=== PATIENT | female | born 1935 | race Caucasian/White ===

== ENCOUNTER → 2018-02-19 | Outpatient (CLI) | payer MEDICARE | END | disposition home or self-care (01) | LOC: SHCH 09:30 | PROVIDERS: ATTEND Internal Medicine Cardiovascular Disease | DX: I73.9 Peripheral vascular disease, unspecified (principal); I71.4 Abdominal aortic aneurysm, without rupture | CPT/HCPCS: 93925; 93978 ==

== ENCOUNTER → 2018-03-25 | Outpatient (CLI) | payer MEDICARE ==
[~2018-03-25] MED LIST: IOHEXOL-350 75 ML VIAL IV ONE
== END | disposition home or self-care (01) ==
LOC: RAH 07:28
PROVIDERS: ATTEND Internal Medicine Cardiovascular Disease
DX: I71.2 Thoracic aortic aneurysm, without rupture (principal); I70.0 Atherosclerosis of aorta; M51.36 Other intervertebral disc degeneration, lumbar region; K44.9 Diaphragmatic hernia without obstruction or gangrene; K57.30 Diverticulosis of large intestine without perforation or abscess without bleeding; I51.7 Cardiomegaly; Z90.49 Acquired absence of other specified parts of digestive tract; Z78.0 Asymptomatic menopausal state
CPT/HCPCS: 75635; Q9967

== ENCOUNTER → 2019-02-25 | Outpatient (CLI) | payer MEDICARE ==
[~2019-02-25] MED LIST changes: +IOHEXOL 350 MG/ML 100ML INFUS..BTL IV ONE; -IOHEXOL-350 75 ML VIAL IV ONE
== END | disposition home or self-care (01) ==
LOC: SHCH 07:47
PROVIDERS: ATTEND Internal Medicine Cardiovascular Disease
DX: I70.1 Atherosclerosis of renal artery (principal); I70.0 Atherosclerosis of aorta; K44.9 Diaphragmatic hernia without obstruction or gangrene; I51.7 Cardiomegaly; I71.2 Thoracic aortic aneurysm, without rupture; I73.9 Peripheral vascular disease, unspecified; M51.34 Other intervertebral disc degeneration, thoracic region; J92.9 Pleural plaque without asbestos; M47.814 Spondylosis without myelopathy or radiculopathy, thoracic region
CPT/HCPCS: 71275; 93925; Q9967

== ENCOUNTER 2020-01-12 09:45 | Inpatient (IN) | payer MEDICARE ==
[2020-01-12 10:32] LABS: BASOPHILS % (AUTO) 0.8 % (0.0-5.0); EOSINOPHILS % (AUTO) 0.6 % (0.0-8.0); HEMATOCRIT 37.5 % (36-48); LYMPHOCYTES % (AUTO) 13.3 % (21.0-51.0); MEAN CORPUSCULAR HGB CONC 33.9 g/dL (32.0-36.0); MEAN CORPUSCULAR VOLUME 97.4 fL (79-99); NEUTROPHILS % (AUTO) 74.1 % (40.0-77.0); NUCLEATED RED BLOOD CELLS 0.4 % (0.0-0.19); PLATELET COUNT (AUTO) 203 K/uL (130-400); RED BLOOD CELL COUNT(AUTO) 3.85 MIL/uL (4.00-5.50); RED CELL DISTRIBUTION WIDTH 12.9 % (11.0-15.5); WHITE BLOOD COUNT (AUTO) 5.3 K/uL (4.8-10.8)
[2020-01-12 10:47] LABS: CREATININE 0.9 mg/dL (0.5-1.5); INR 0.99 (0.85-1.15); PARTIAL THROMBOPLASTIN TIME 25.4 SEC (26.3-35.5); POTASSIUM 3.6 mmol/L (3.5-5.1); PROTHROMBIN TIME 10.7 SEC (9.6-11.6)
[2020-01-12 10:49] LABS: APPEARANCE,URINE Cloudy (CLEAR); BILIRUBIN,URINE Negative (NEGATIVE); COLOR,URINE Dark Yellow (YELLOW); GLUCOSE, URINE (UA) Negative (NEGATIVE); KETONES,URINE 15 mg/dL (NEGATIVE); LEUKOCYTE ESTERASE ,URINE Moderate (NEGATIVE); NITRATE,URINE Positive (NEGATIVE); OCCULT BLOOD,URINE Negative (NEGATIVE); PH,URINE 6.5 (5.0-8.0); PROTEIN,URINE Trace mg/dL (NEGATIVE)
[2020-01-12 10:51] LABS: BILIRUBIN,TOTAL 0.8 mg/dL (0.2-1.0)
[2020-01-12 11:08] LABS: BACTERIA,URINE Many /HPF (None Seen); SQUAMOUS EPITHELIAL CELL,UR Moderate /HPF (0-2); WBC,URINE 26-50 /HPF (0-1)
[2020-01-12 11:48] LABS: AMPHET/METH SCREEN,URINE NEGATIVE (NEGATIVE); BARBITURATE SCREEN, URINE NEGATIVE (NEGATIVE); BENZODIAZEPINES SCREEN,URINE NEGATIVE (NEGATIVE); CANNABINOID SCREEN,URINE NEGATIVE (NEGATIVE); COCAINE SCREEN,URINE NEGATIVE (NEGATIVE); OPIATE SCREEN,URINE NEGATIVE (NEGATIVE); PHENCYCLIDINE SCREEN,URINE NEGATIVE (NEGATIVE)
[2020-01-12] MEDS ORDERED: LABETALOL 20 MG/4 ML DISP.SYRIN IV PRN (15:45)
[2020-01-12] MEDS ORDERED: ACETAMINOPHEN EXTENDED RELEASE 650 MG TABLET PO PRN ×2 (15:45)
[2020-01-12] MEDS ORDERED: IOHEXOL 350 MG/ML 100ML INFUS..BTL IV ONE (16:07)
[2020-01-12] MEDS: CEFTRIAXONE SODIUM 1 GM IVP SCH (16:30)
[2020-01-12] MEDS ORDERED: CEFTRIAXONE SODIUM 1 GM ONE (17:16)
--- NOTE | 2020-01-12 17:30 | NUR ---
REPORT RECEIVED FROM PENELOPE TRINH (ED). PATIENT ADMITTED FOR R/O CVA DUE TO SPEAKING DIFFICULTIES. NO CONSULTS. PATIENT STABLE AT THIS TIME.
[2020-01-12] MEDS ORDERED: ZINC50TA64 PO (18:29)
[2020-01-12] MEDS ORDERED: TURM500C9 PO (18:29)
[2020-01-12] MEDS ORDERED: LISI40TA4 PO (18:29)
[2020-01-12] MEDS ORDERED: ASPI-1197 PO (18:29)
[2020-01-12] MEDS ORDERED: OMEP40CA13 PO (18:29)
[2020-01-12] MEDS ORDERED: CALC600T15 PO (18:29)
[2020-01-12] MEDS ORDERED: VIT1TABL83 PO (18:29)
[2020-01-12] MEDS ORDERED: CYAN250010 PO (18:29)
[2020-01-12] MEDS ORDERED: LEVO112T7 PO (18:29)
[2020-01-12] MEDS ORDERED: ASCO100031 PO (18:29)
[2020-01-12] MEDS ORDERED: MAGN400T40 PO (18:29)
[2020-01-12] MEDS ORDERED: CHOL500051 PO (18:29)
[2020-01-12 19:00] VITALS: BP 171/78
[2020-01-12] MEDS: CALCIUM CARBON 500MG CHEW TAB PO SCH (21:37)
[2020-01-12] MEDS: PANTOPRAZOLE SODIUM 40 MG TABLET.DR PO SCH (21:38)
[2020-01-12] MEDS: ATORVASTATIN CALCIUM 20 MG TABLET PO SCH (21:38)
[2020-01-12 22:54] VITALS: BP 166/74
[2020-01-13 03:27] VITALS: BP 152/59
[2020-01-13 05:24] LABS: HEMATOCRIT 36.2 % (36-48); MEAN CORPUSCULAR HEMOGLOBIN 32.3 pg (27.0-33.0); MEAN CORPUSCULAR HGB CONC 33.4 g/dL (32.0-36.0); MEAN CORPUSCULAR VOLUME 96.5 fL (79-99); RED BLOOD CELL COUNT(AUTO) 3.75 MIL/uL (4.00-5.50); RED CELL DISTRIBUTION WIDTH 12.8 % (11.0-15.5); WHITE BLOOD COUNT (AUTO) 3.6 K/uL (4.8-10.8)
[2020-01-13 05:50] LABS: ALANINE AMINOTRANSFERASE 14 U/L (12-78); ALBUMIN 3.4 g/dL (3.5-5.0); ASPARTATE AMINOTRANSFERASE 19 U/L (10-37); BILIRUBIN,TOTAL 0.7 mg/dL (0.2-1.0); CARBON DIOXIDE 29 mmol/L (21-32); CHLORIDE 98 mmol/L (101-111); CHOLESTEROL 150 mg/dL (<200); CREATINE KINASE, TOTAL 81 U/L (21-232); CREATININE 0.7 mg/dL (0.5-1.5); GLOMERULAR FILTR. RATE CALC 85 mL/min (>60); GLUCOSE,RANDOM 87 mg/dL (70-105); HDL CHOLESTEROL 79 mg/dL (35-85); LDL DIRECT 62 mg/dL (0-99); MYOGLOBIN 53 ng/mL (10-92); SODIUM SERUM 135 mmol/L (136-145); TOTAL PROTEIN, SERUM 6.5 g/dL (6.0-8.3); TRIGLYCERIDES 24 mg/dL (30-200); TROPONIN I < 0.04 ng/mL (0.00-0.06); UREA NITROGEN, BLOOD 10 mg/dL (7-18)
[2020-01-13 05:54] LABS: INR 1.06 (0.85-1.15); PROTHROMBIN TIME 11.4 SEC (9.6-11.6)
[2020-01-13 05:55] LABS: HEMOGLOBIN A1C 5.3 % (4.0-6.0)
[2020-01-13] MEDS: PANTOPRAZOLE SODIUM 40 MG TABLET.DR PO SCH ×2 (06:07→17:43)
[2020-01-13] MEDS: LEVOTHYROXINE 112 MCG TABLET PO SCH (06:07)
--- NOTE | 2020-01-13 07:30 | NUR ---
NOTE AAOX3. DENIES PAIN OR DISCOMFORT. BBS CLEAR. NO N/V NO DISTRESS. CAME IN WITH CHANGES IN SPEECH. NO ASSYMETRICAL WEAKNESS OR OTHER NEURO DEFICITS OTHER THAN HER SPEECH GETS A LITTLE GARBLED WHEN SHE TRIES TO SPEAK FAST, SHE WOULD NORMALLY SPEAK. STUDIES HAVE BEEN DONE AND WAITING FOR M.D. TO ROUND. SHE IS ALSO PENDING SPEECH THERAPY CONSULT.
[2020-01-13 08:00] VITALS: BP 165/79
[2020-01-13] MEDS: CALCIUM CARBON 500MG CHEW TAB PO SCH ×2 (08:00→12:15)
[2020-01-13] MEDS: CHOLECALCIFEROL 125 MCG PO SCH (08:48)
[2020-01-13] MEDS: TURMERIC ROOT EXTRACT 500 MG PO SCH (08:48)
[2020-01-13] MEDS: ZINC AMINO ACID CHELATE PO SCH (08:48)
--- NOTE | 2020-01-13 10:00 | NUR ---
DYSPHAGIA EVAL COMPLETED. -S/S OF ASPIRATION. RECOMMEND REGULAR TEXTURE, THIN LIQUIDS; PILLS WHOLE WITH LIQUIDS. Addendum: 01/13/20 at 1251 by CHEL CONTRERAS, [facility] Amended: Links added.
--- NOTE | 2020-01-13 10:15 | NUR ---
COGNITIVE-LINGUISTIC EVAL COMPLETED. Pt PRESENTS WITH MILD DYSARTHRIA. EVALUATION: Pt AAOX3. Pt REQUESTS WANTS AND NEEDS INDEPENDENTLY. Pt INTELLIGIBLE AT 80% ACCURACY TO THE UNFAMILIAR LISTENER IN RUNNING SPEECH. Pt WITH INCREASED OF SPEECH NEGATIVELY AFFECTING INTELLIGIBILITY AT THIS TIME. Pt PRESENTS WITH MILD DYSARTHRIA. Pt COMMUNICATING AT CONVERSATIONAL LEVEL. Pt COMPLETED COGNITIVE-LINGUISTIC EVALUATION TARGETING: ORIENTATION, ATTENTION/CONCENTRATION, MEMORY (IMMEDIATE, SHORT-TERM AND LONG-TERM), PROBLEM SOLVING, LOGIC/REASONING/INFERENCE, THOUGHT ORGANIZATION, FUNCTIONAL MATH AND TELLING TIME. RECOMMEND SKILLED SPEECH THERAPY TARGETING SPEECH INTELLIGIBILITY. MOTOR SPEECH G-CODES: [id number] Addendum: 01/14/20 at 0733 by CHEL CONTRERAS [facility] Amended: Links added.
[2020-01-13 11:00] VITALS: BP 161/98
[2020-01-13] MEDS: ASCORBIC ACID 500 MG TAB PO SCH (12:13)
[2020-01-13] MEDS: CYANOCOBALAMIN (VITAMIN B-12) 1,000 MCG TABLET PO SCH (12:14)
[2020-01-13] MEDS: MAGNESIUM OXIDE 400 MG TABLET PO SCH (12:14)
[2020-01-13] MEDS: CLOPIDOGREL BISULFATE 75 MG TAB PO SCH (12:14)
[2020-01-13] MEDS: ASPIRIN 81MG TAB.CHEW PO SCH (12:14)
[2020-01-13] MEDS: VITAMIN B COMPLEX 1 CAPSULE PO SCH (12:15)
[2020-01-13] MEDS: FAMOTIDINE/PF 20 MG/2 ML VIAL IV SCH ×2 (12:15→19:49)
--- NOTE | 2020-01-13 15:22 | NUR ---
DC PLAN VISITED WITH PATIENT. PATIENT LIVES ALONE. [facility]. [facility]. INDEPENDENT ABLE TO PERFORM ADL'S. PATIENT HAS NO SERVICES OR DME'S. FEELS SAFE TO RETURN HOME. WANTS TO GO HOME ALREADY. Addendum: 01/13/20 at 1523 by JOSEPH VILLAR RN CM Amended: Links added.
[2020-01-13 16:00] VITALS: BP 161/84
[2020-01-13] MEDS: CEFTRIAXONE SODIUM 1 GM IVP SCH (17:43)
[2020-01-13] MEDS ORDERED: ASPIRIN 81MG TAB.CHEW PO SCH (19:00)
[2020-01-13] MEDS ORDERED: LISINOPRIL 40 MG TABLET PO SCH ×2 (19:00→21:00)
[2020-01-13] MEDS: ATORVASTATIN CALCIUM 20 MG TABLET PO SCH (19:50)
--- NOTE | 2020-01-13 20:00 | NUR ---
ASSESSMENT NOTE AWAKE, ALERT, OX3, SOME EXPRESSIVE APHASIA AT TIMES WHEN SPEAKING FAST, NO SOB, NO C/O PAIN AT THIS TIME, TEACH PATIENT PLAN OF CARE AND EXPECTED OUTCOME, PATIENT VERBALIZES UNDERSTANDING VIA TEACH BACK , INSTRUCT PATIENT TO CALL NURSE WHEN URGE TO VOID, CALL GAMING AT REACH
[2020-01-13 20:32] VITALS: BP 131/61
[2020-01-13 23:05] VITALS: BP 128/60
[2020-01-14 04:35] VITALS: BP 157/82
[2020-01-14] MEDS: LEVOTHYROXINE 112 MCG TABLET PO SCH (06:23)
[2020-01-14] MEDS: PANTOPRAZOLE SODIUM 40 MG TABLET.DR PO SCH ×2 (06:23→17:55)
[2020-01-14 07:50] VITALS: BP 142/64
[2020-01-14] MEDS: CALCIUM CARBON 500MG CHEW TAB PO SCH ×2 (08:00→17:55)
--- NOTE | 2020-01-14 08:58 | NUR ---
SPEECH THERAPY COMPLETED. S: Pt COOPERATIVE WITH ALL ACTIVITIES. Pt SEATED AT 90 DEGREES IN BED. O: PT CURRENTLY TARGETING SKILLED INTELLIGIBILITY GOALS. RESULTS ARE FOLLOWS: STG1: PT WILL INCREASE INTELLIGIBILITY AT THE PHRASE LEVEL USING OVER ARTICULATION, SLOW AND EXAGGERATED SPEECH WITH 80% ACCURACY: 80% ACCURACY MIN CUES STG2: PT WILL COMPLETE ORAL MOTOR EXERCISES WITH 80% ACCURACY: 80% ACCURACY WITH MIN CUES STG3: SKILLED EDUCATION Pt/FAMILY/STAFF: COMPLETED A: Pt VERBALIZED OVER ARTICULATION TECHNIQUES AND WAS ABLE TO PREFORM WITH MINIMAL CUES. IMPROVED INTELLIGIBILITY AT THIS TIME. P: RECOMMEND CONTINUED SKILLED SPEECH THERAPY 1-3X WK FOR 2 WKS TARGETING SPEECH GOALS. Addendum: 01/15/20 at 0902 by CHEL CONTRERAS [facility] Amended: Links added.
[2020-01-14] MEDS: ZINC AMINO ACID CHELATE PO SCH (09:00)
[2020-01-14] MEDS: CHOLECALCIFEROL 125 MCG PO SCH (09:00)
[2020-01-14] MEDS: TURMERIC ROOT EXTRACT 500 MG PO SCH (09:00)
[2020-01-14] MEDS: ASCORBIC ACID 500 MG TAB PO SCH (10:28)
[2020-01-14] MEDS: FAMOTIDINE/PF 20 MG/2 ML VIAL IV SCH (10:28)
[2020-01-14] MEDS: CYANOCOBALAMIN (VITAMIN B-12) 1,000 MCG TABLET PO SCH (10:28)
[2020-01-14] MEDS: VITAMIN B COMPLEX 1 CAPSULE PO SCH (10:29)
[2020-01-14] MEDS: CLOPIDOGREL BISULFATE 75 MG TAB PO SCH (10:29)
[2020-01-14] MEDS: MAGNESIUM OXIDE 400 MG TABLET PO SCH (10:29)
[2020-01-14] MEDS: ASPIRIN 81MG TAB.CHEW PO SCH (10:29)
[2020-01-14] MEDS ORDERED: LISI40TA4 PO (10:46)
[2020-01-14] MEDS ORDERED: CLOP75TA14 PO (10:46)
[2020-01-14] MEDS ORDERED: ATOR40TA69 PO (10:46)
[2020-01-14] MEDS ORDERED: SULF1TAB42 PO (10:49)
[2020-01-14 11:28] VITALS: BP 157/71
[2020-01-14 16:07] VITALS: BP 161/78
[2020-01-14] MEDS: CEFTRIAXONE SODIUM 1 GM IVP SCH (17:55)
--- NOTE | 2020-01-14 18:40 | NUR ---
THE PATIENT WAS DISCHARGED ON 01/14/2020 AT 1840. THE PATIENT WAS EDUCATED ON THE TYPE OF STROKE THAT OCCURED THAT GO HER ADMITTED INTO THE HOSPITAL. ALL DOCTORS CLEARED HER FROM THEIR STAND POINTS AND PROCEEDED WITH DISCHARGE. PATIENT WAS EDUCATED ON NEW PRESCRIPTION MEDICATION WHICH CONSISTED OF ATORVASTATIN, CLOPIDROGREL, LISINOPRIL; SHE UNDERSTOOD WHEN TO TAKE THE MEDICATION, SIDE EFFECTS THAT COULD OCCUR, AND WHAT THE MEDICATION IS USED FOR. PATIENTS IV WAS DISCONTINUED AND INTACT, TELMETRY MONITOR WAS REMOVED AND RETURNED. THE PATIENT UNDERSTOOD ALL TEACHING AND HAD NO FURTHER QUESTIONS.
--- NOTE | 2020-01-15 13:26 | NUR ---
TRANSITIONAL CARE - POST-DISCHARGE NOTE NO ANSWER at phone number on file. Unable to leave voicemail. Call keeps being ended. Attempted 3 times. Addendum: 01/15/20 at 1327 by JUAN BAÑUELOS Amended: Links added.
== END 2020-01-14 18:40 | disposition home or self-care (01) | DRG 65 ==
LOC: EDH 09:45 → UNDOADMIN 13:12 → EDHIP 13:12 → INTOOBSV 13:55 → OBSVTOIN 13:55 → EDHIP 13:55 → 3BH 17:17
PROVIDERS: ADMIT Hospitalist; ATTEND Hospitalist
DX: I63.9 Cerebral infarction, unspecified (principal); N39.0 Urinary tract infection, site not specified; E87.1 Hypo-osmolality and hyponatremia; I87.1 Compression of vein; I10 Essential (primary) hypertension; E03.9 Hypothyroidism, unspecified; Z88.5 Allergy status to narcotic agent; I70.8 Atherosclerosis of other arteries; Z92.21 Personal history of antineoplastic chemotherapy; Z92.3 Personal history of irradiation; Z90.10 Acquired absence of unspecified breast and nipple; Z85.3 Personal history of malignant neoplasm of breast; Z90.49 Acquired absence of other specified parts of digestive tract; Z79.02 Long term (current) use of antithrombotics/antiplatelets; Z79.82 Long term (current) use of aspirin; Z79.899 Other long term (current) drug therapy; B96.20 Unspecified Escherichia coli [E. coli] as the cause of diseases classified elsewhere; R47.1 Dysarthria and anarthria
CPT/HCPCS: 36415; 70450; 70496; 70498; 70551; 71045; 80053; 80061; 80305; 81001; 82550; 83036; 83721; 83874; 84484; 85025; 85027; 85610; 85730; 87077; 87088; 87186; 92507; 92522; 92610; 93005; 93356; 97039; C8929; G0378; J0696; J3490; Q9967

== ENCOUNTER 2020-04-11 13:54 | Inpatient (IN) | payer MEDICARE ==
[~2020-04-11] VITALS: Ht 157.5 cm; Wt 83.0 kg
[~2020-04-11 13:54] MED LIST changes: +ASCO100031 PO; +ASPI-1197 PO; +ATOR40TA69 PO; +CALC-1125 PO; +CHOL500051 PO; +CLOP75TA14 PO; +CYAN250010 PO; -IOHEXOL 350 MG/ML 100ML INFUS..BTL IV ONE; +LEVO112T7 PO; +LISI40TA9 PO; +MAGN400T40 PO; +OMEP40CA21 PO; +SULF1TAB42 PO; +TURM500C9 PO; +VIT1TABL83 PO; +ZINC50TA64 PO
[2020-04-11 14:25] LABS: BASOPHILS % (AUTO) 0.4 % (0.0-5.0); EOSINOPHILS % (AUTO) 0.4 % (0.0-8.0); HEMATOCRIT 36.3 % (36-48); LYMPHOCYTES % (AUTO) 10.2 % (21.0-51.0); MEAN CORPUSCULAR HEMOGLOBIN 32.1 pg (27.0-33.0); MEAN CORPUSCULAR HGB CONC 32.8 g/dL (32.0-36.0); MEAN CORPUSCULAR VOLUME 97.8 fL (79-99); MONOCYTES % (AUTO) 8.5 % (3.0-13.0); NEUTROPHILS % (AUTO) 80.1 % (40.0-77.0); NUCLEATED RED BLOOD CELLS 0.4 % (0.0-0.19); PLATELET COUNT (AUTO) 182 K/uL (130-400); RED BLOOD CELL COUNT(AUTO) 3.71 MIL/uL (4.00-5.50); RED CELL DISTRIBUTION WIDTH 14.3 % (11.0-15.5); WHITE BLOOD COUNT (AUTO) 7.3 K/uL (4.8-10.8)
[2020-04-11 14:37] LABS: INR 1.1 (0.85-1.15); PROTHROMBIN TIME 11.9 SEC (9.6-11.6)
[2020-04-11 14:39] LABS: PARTIAL THROMBOPLASTIN TIME 26.7 SEC (26.3-35.5)
[2020-04-11 14:40] LABS: ALBUMIN 3.9 g/dL (3.5-5.0); BILIRUBIN,TOTAL 0.9 mg/dL (0.2-1.0); CREATININE 0.9 mg/dL (0.5-1.5); POTASSIUM 3.7 mmol/L (3.5-5.1); TOTAL PROTEIN, SERUM 7.2 g/dL (6.0-8.3)
[2020-04-11] MEDS ORDERED: ASPIRIN 325 MG TABLET ONE (14:52)
[2020-04-11] MEDS ORDERED: 0.9%NACL 1000ML 1,000 ML IV SCH (16:45)
[2020-04-11] MEDS ORDERED: MAGNESIUM 2GM PREMIX 50ML 50 ML IV SCH (17:00)
[2020-04-11 17:42] LABS: APPEARANCE,URINE Clear (CLEAR); BILIRUBIN,URINE Negative (NEGATIVE); COLOR,URINE Yellow (YELLOW); GLUCOSE, URINE (UA) Negative (NEGATIVE); KETONES,URINE 15 mg/dL (NEGATIVE); LEUKOCYTE ESTERASE ,URINE Negative (NEGATIVE); NITRATE,URINE Negative (NEGATIVE); OCCULT BLOOD,URINE Negative (NEGATIVE); PROTEIN,URINE Trace mg/dL (NEGATIVE); UROBILINOGEN,URINE 0.2 mg/dL (0.2-1.0)
[2020-04-11 17:43] LABS: CHLORIDE,URINE RANDOM 65 mmol/L (110-250); SODIUM,URINE RANDOM 54 mmol/l (40-220)
[2020-04-11] MEDS ORDERED: THIAMINE HCL 100 MG TABLET PO SCH (17:45)
[2020-04-11] MEDS ORDERED: FOLIC ACID 1 MG TABLET PO SCH (17:50)
[2020-04-11 18:02] LABS: BACTERIA,URINE Rare /HPF (None Seen); RBC,URINE 0-1 /HPF (0-1); SQUAMOUS EPITHELIAL CELL,UR Rare /HPF (0-2); WBC,URINE 0-1 /HPF (0-1)
[2020-04-11] MEDS ORDERED: POTASSIUM CHLORIDE 10% ELIXIR 20 MEQ/15 ML UDCUP PO SCH (18:10)
[2020-04-11] MEDS: METOPROLOL TARTRATE 25 MG TAB PO SCH (21:00)
[2020-04-11] MEDS ORDERED: ATORVASTATIN 20 MG TABLET PO SCH (21:00)
[2020-04-11] MEDS: LISINOPRIL 40 MG TABLET PO SCH (21:00)
[2020-04-11] MEDS: PANTOPRAZOLE 40 MG TAB DR PO SCH (21:00)
[2020-04-11] MEDS ORDERED: PANTOPRAZOLE 40 MG TAB DR ONE (21:31)
[2020-04-11] MEDS ORDERED: MAGNESIUM 2GM PREMIX 50ML 50 ML IV ONE (21:31)
[2020-04-11] MEDS ORDERED: THIAMINE HCL 100 MG TABLET ONE (21:31)
[2020-04-11] MEDS ORDERED: ATORVASTATIN 40 MG TABLET ONE (21:31)
[2020-04-11] MEDS ORDERED: LISINOPRIL 40 MG TABLET ONE (21:31)
[2020-04-11] MEDS ORDERED: FOLIC ACID 1 MG TABLET ONE (21:32)
[2020-04-11] MEDS ORDERED: METOPROLOL TARTRATE 25 MG TAB ONE (21:32)
[2020-04-11 23:59] VITALS: BP 158/92
[2020-04-12 04:05] LABS: CREATININE 0.8 mg/dL (0.5-1.5); PHOSPHORUS 4.3 mg/dL (2.5-4.9); POTASSIUM 3.6 mmol/L (3.5-5.1); URIC ACID 3.9 mg/dL (2.6-7.2)
[2020-04-12] MEDS: LEVOTHYROXINE 112 MCG TABLET PO SCH (05:50)
[2020-04-12 06:16] VITALS: BP 176/74
[2020-04-12 07:41] VITALS: BP 188/75
[2020-04-12] MEDS: THIAMINE HCL 100 MG TABLET PO SCH (08:51)
[2020-04-12] MEDS: FOLIC ACID 1 MG TABLET PO SCH (08:52)
[2020-04-12] MEDS: PANTOPRAZOLE 40 MG TAB DR PO SCH ×2 (08:52→20:42)
[2020-04-12] MEDS: ASPIRIN 81MG CHEW TAB PO SCH ×2 (08:52→19:12)
[2020-04-12] MEDS: CLOPIDOGREL 75MG TAB PO SCH (08:53)
[2020-04-12] MEDS: CYANOCOBALAMIN (VITAMIN B-12) 1,000 MCG TABLET PO SCH (08:53)
[2020-04-12] MEDS: MAGNESIUM OXIDE 400 MG TABLET PO SCH (08:53)
[2020-04-12] MEDS: METOPROLOL TARTRATE 25 MG TAB PO SCH ×2 (08:53→20:42)
[2020-04-12 11:28] VITALS: BP 150/87
[2020-04-12 15:55] VITALS: BP 150/87
[2020-04-12] MEDS ORDERED: CA 600MG+VIT D 400 UNIT TAB 1 TAB TABLET PO SCH (17:00)
[2020-04-12] MEDS: CA 600MG+VIT D 400 UNIT TAB 1 TAB TABLET PO SCH (19:16)
[2020-04-12] MEDS: ATORVASTATIN 40 MG TABLET PO SCH (20:42)
[2020-04-12] MEDS: LISINOPRIL 40 MG TABLET PO SCH ×2 (20:42)
[2020-04-12 20:44] VITALS: BP 156/65
[2020-04-13 00:45] VITALS: BP 177/96
[2020-04-13 04:16] LABS: BASOPHILS % (AUTO) 0.8 % (0.0-5.0); EOSINOPHILS % (AUTO) 2.2 % (0.0-8.0); HEMATOCRIT 33.8 % (36-48); LYMPHOCYTES % (AUTO) 14.4 % (21.0-51.0); MEAN CORPUSCULAR HGB CONC 33.4 g/dL (32.0-36.0); MEAN CORPUSCULAR VOLUME 95.8 fL (79-99); NEUTROPHILS % (AUTO) 69.4 % (40.0-77.0); NUCLEATED RED BLOOD CELLS 0.4 % (0.0-0.19); PLATELET COUNT (AUTO) 171 K/uL (130-400); RED BLOOD CELL COUNT(AUTO) 3.53 MIL/uL (4.00-5.50); WHITE BLOOD COUNT (AUTO) 4.9 K/uL (4.8-10.8)
[2020-04-13 04:26] LABS: CREATININE 0.8 mg/dL (0.5-1.5); POTASSIUM 3.9 mmol/L (3.5-5.1)
[2020-04-13 04:53] VITALS: BP 167/105
[2020-04-13 07:30] VITALS: BP 180/93
[2020-04-13] MEDS: LEVOTHYROXINE 112 MCG TABLET PO SCH ×2 (07:30)
[2020-04-13] MEDS: THIAMINE HCL 100 MG TABLET PO SCH (08:41)
[2020-04-13] MEDS: PANTOPRAZOLE 40 MG TAB DR PO SCH ×2 (08:41→21:04)
[2020-04-13] MEDS: VITAMIN B COMPLEX 1 CAPSULE PO SCH (08:41)
[2020-04-13] MEDS: FOLIC ACID 1 MG TABLET PO SCH (08:42)
[2020-04-13] MEDS: CA 600MG+VIT D 400 UNIT TAB 1 TAB TABLET PO SCH ×2 (08:42→16:44)
[2020-04-13] MEDS: CLOPIDOGREL 75MG TAB PO SCH (08:42)
[2020-04-13] MEDS: METOPROLOL TARTRATE 25 MG TAB PO SCH (08:43)
[2020-04-13] MEDS: MAGNESIUM OXIDE 400 MG TABLET PO SCH ×2 (08:43→08:57)
[2020-04-13] MEDS: ASPIRIN 81MG CHEW TAB PO SCH ×2 (08:43→20:00)
[2020-04-13] MEDS: CYANOCOBALAMIN (VITAMIN B-12) 1,000 MCG TABLET PO SCH (08:43)
[2020-04-13] MEDS: ASCORBIC ACID 500 MG TAB PO SCH (08:43)
[2020-04-13] MEDS: CYANOCOBALAMIN 2500 MCG PO SCH (08:57)
[2020-04-13] MEDS: ***HM***(Cholecalciferol (Vitamin D3) (Vitamin D3) 125 MCG) PO SCH (08:57)
[2020-04-13] MEDS ORDERED: CLOPIDOGREL 75MG TAB PO SCH (09:00)
[2020-04-13 11:00] VITALS: BP 167/85
[2020-04-13 16:00] VITALS: BP 178/94
[2020-04-13 19:48] VITALS: BP 171/78
[2020-04-13] MEDS: LISINOPRIL 40 MG TABLET PO SCH ×2 (21:00→21:03)
[2020-04-13] MEDS ORDERED: METOPROLOL TARTRATE 25 MG TAB PO SCH (21:00)
[2020-04-13] MEDS: ATORVASTATIN 40 MG TABLET PO SCH (21:04)
[2020-04-14 01:13] VITALS: BP 173/100
[2020-04-14 04:16] LABS: BASOPHILS % (AUTO) 0.8 % (0.0-5.0); HEMATOCRIT 32.9 % (36-48); LYMPHOCYTES % (AUTO) 14.2 % (21.0-51.0); MEAN CORPUSCULAR HEMOGLOBIN 31.9 pg (27.0-33.0); MEAN CORPUSCULAR HGB CONC 33.4 g/dL (32.0-36.0); MEAN CORPUSCULAR VOLUME 95.4 fL (79-99); MONOCYTES % (AUTO) 10.9 % (3.0-13.0); NEUTROPHILS % (AUTO) 72.7 % (40.0-77.0); PLATELET COUNT (AUTO) 148 K/uL (130-400); RED BLOOD CELL COUNT(AUTO) 3.45 MIL/uL (4.00-5.50); RED CELL DISTRIBUTION WIDTH 13.7 % (11.0-15.5); WHITE BLOOD COUNT (AUTO) 4.9 K/uL (4.8-10.8)
[2020-04-14 04:28] LABS: B-TYPE NATRIURETIC PEPTIDE 227 pg/mL (0-100)
[2020-04-14 04:33] LABS: CREATININE 0.8 mg/dL (0.5-1.5); POTASSIUM 3.9 mmol/L (3.5-5.1)
[2020-04-14 05:22] VITALS: BP 170/90
[2020-04-14] MEDS: LEVOTHYROXINE 112 MCG TABLET PO SCH ×2 (06:30→06:36)
[2020-04-14] MEDS: VITAMIN B COMPLEX 1 CAPSULE PO SCH (07:57)
[2020-04-14] MEDS: CYANOCOBALAMIN (VITAMIN B-12) 1,000 MCG TABLET PO SCH (07:57)
[2020-04-14] MEDS: CA 600MG+VIT D 400 UNIT TAB 1 TAB TABLET PO SCH ×2 (07:57→18:29)
[2020-04-14] MEDS: CLOPIDOGREL 75MG TAB PO SCH (07:57)
[2020-04-14] MEDS: MAGNESIUM OXIDE 400 MG TABLET PO SCH ×2 (07:57→09:00)
[2020-04-14] MEDS: PANTOPRAZOLE 40 MG TAB DR PO SCH ×2 (07:57→20:07)
[2020-04-14] MEDS: ASCORBIC ACID 500 MG TAB PO SCH (07:57)
[2020-04-14] MEDS: THIAMINE HCL 100 MG TABLET PO SCH (07:57)
[2020-04-14] MEDS: FOLIC ACID 1 MG TABLET PO SCH (07:58)
[2020-04-14] MEDS: METOPROLOL TARTRATE 25 MG TAB PO SCH ×2 (07:58→20:08)
[2020-04-14 08:00] VITALS: BP 164/89
[2020-04-14] MEDS: ***HM***(Cholecalciferol (Vitamin D3) (Vitamin D3) 125 MCG) PO SCH (09:00)
[2020-04-14] MEDS: CYANOCOBALAMIN 2500 MCG PO SCH (09:00)
[2020-04-14 11:53] VITALS: BP 157/97
[2020-04-14 16:00] VITALS: BP 165/94
[2020-04-14 19:36] VITALS: BP 163/86
[2020-04-14] MEDS: ATORVASTATIN 40 MG TABLET PO SCH (20:07)
[2020-04-14] MEDS: LISINOPRIL 40 MG TABLET PO SCH ×2 (20:08)
[2020-04-15 00:06] VITALS: BP 159/100
[2020-04-15 04:35] LABS: BASOPHILS % (AUTO) 0.7 % (0.0-5.0); HEMATOCRIT 36.3 % (36-48); LYMPHOCYTES % (AUTO) 16.8 % (21.0-51.0); MEAN CORPUSCULAR HEMOGLOBIN 31.5 pg (27.0-33.0); MEAN CORPUSCULAR HGB CONC 32.5 g/dL (32.0-36.0); MEAN CORPUSCULAR VOLUME 96.8 fL (79-99); MONOCYTES % (AUTO) 8.9 % (3.0-13.0); NEUTROPHILS % (AUTO) 71.2 % (40.0-77.0); PLATELET COUNT (AUTO) 166 K/uL (130-400); RED BLOOD CELL COUNT(AUTO) 3.75 MIL/uL (4.00-5.50); RED CELL DISTRIBUTION WIDTH 13.9 % (11.0-15.5); WHITE BLOOD COUNT (AUTO) 5.6 K/uL (4.8-10.8)
[2020-04-15 04:48] VITALS: BP 183/119
[2020-04-15 04:49] LABS: CREATININE 0.8 mg/dL (0.5-1.5); MAGNESIUM 1.4 mg/dL (1.80-2.40); POTASSIUM 3.8 mmol/L (3.5-5.1)
[2020-04-15] MEDS: LEVOTHYROXINE 112 MCG TABLET PO SCH ×2 (05:21→05:23)
[2020-04-15] MEDS ORDERED: LABETALOL 20MG SYG IV ONE (05:51)
[2020-04-15 06:29] VITALS: BP 160/99
[2020-04-15] MEDS ORDERED: LABETALOL 20MG SYG IV SCH (07:46)
[2020-04-15] MEDS: VITAMIN B COMPLEX 1 CAPSULE PO SCH (08:15)
[2020-04-15] MEDS: ASCORBIC ACID 500 MG TAB PO SCH (08:15)
[2020-04-15] MEDS: CA 600MG+VIT D 400 UNIT TAB 1 TAB TABLET PO SCH (08:15)
[2020-04-15] MEDS: MAGNESIUM OXIDE 400 MG TABLET PO SCH ×2 (08:15→09:00)
[2020-04-15] MEDS: THIAMINE HCL 100 MG TABLET PO SCH (08:16)
[2020-04-15] MEDS: FOLIC ACID 1 MG TABLET PO SCH (08:16)
[2020-04-15] MEDS: METOPROLOL TARTRATE 25 MG TAB PO SCH (08:16)
[2020-04-15] MEDS: CYANOCOBALAMIN (VITAMIN B-12) 1,000 MCG TABLET PO SCH (08:16)
[2020-04-15] MEDS: PANTOPRAZOLE 40 MG TAB DR PO SCH (08:17)
[2020-04-15] MEDS: ***HM***(Cholecalciferol (Vitamin D3) (Vitamin D3) 125 MCG) PO SCH (08:20)
[2020-04-15] MEDS: CYANOCOBALAMIN 2500 MCG PO SCH (08:21)
[2020-04-15] MEDS ORDERED: AMLODIPINE 5 MG TAB PO SCH (09:00)
[2020-04-15] MEDS ORDERED: HYDROCHLOROTHIAZIDE 25 MG TABLET PO SCH (09:00)
[2020-04-15] MEDS ORDERED: APIXABAN 5 MG TABLET PO SCH (09:00)
[2020-04-15] MEDS ORDERED: LISINOPRIL 40 MG TABLET PO SCH (09:00)
[2020-04-15 09:31] VITALS: BP 165/89
[2020-04-15] MEDS ORDERED: METO25 PO (10:55)
[2020-04-15] MEDS ORDERED: APIX5TAB PO (10:55)
[2020-04-15] MEDS ORDERED: SODI100037 PO (10:55)
[2020-04-15] MEDS ORDERED: AMLO5TAB4 PO (10:55)
[2020-04-15] MEDS ORDERED: LISI40TA9 PO (10:55)
[2020-04-15] MEDS ORDERED: SODIUM CHLORIDE 1,000 MG TAB PO SCH (21:00)
== END 2020-04-15 11:07 | disposition home or self-care (01) | DRG 308 ==
LOC: EDH 13:54 → OBSVTOIN 16:29 → EDHIP 16:29 → 4DH 22:51
PROVIDERS: ADMIT Internal Medicine; ATTEND Internal Medicine
DX: I48.91 Unspecified atrial fibrillation (principal); I50.43 Acute on chronic combined systolic (congestive) and diastolic (congestive) heart failure; E87.1 Hypo-osmolality and hyponatremia; D68.69 Other thrombophilia; I42.9 Cardiomyopathy, unspecified; E03.9 Hypothyroidism, unspecified; E78.5 Hyperlipidemia, unspecified; E83.42 Hypomagnesemia; I25.10 Atherosclerotic heart disease of native coronary artery without angina pectoris; I27.20 Pulmonary hypertension, unspecified; I73.9 Peripheral vascular disease, unspecified; I34.0 Nonrheumatic mitral (valve) insufficiency; I70.0 Atherosclerosis of aorta; I70.8 Atherosclerosis of other arteries; Z20.822 Contact with and (suspected) exposure to COVID-19; I71.2 Thoracic aortic aneurysm, without rupture; M19.90 Unspecified osteoarthritis, unspecified site; Z68.33 Body mass index [BMI] 33.0-33.9, adult; Z85.118 Personal history of other malignant neoplasm of bronchus and lung; Z85.3 Personal history of malignant neoplasm of breast; Z86.73 Personal history of transient ischemic attack (TIA), and cerebral infarction without residual deficits; Z90.49 Acquired absence of other specified parts of digestive tract; Z90.11 Acquired absence of right breast and nipple; Z92.21 Personal history of antineoplastic chemotherapy; Z92.3 Personal history of irradiation; Z88.5 Allergy status to narcotic agent; Z82.3 Family history of stroke; Z83.6 Family history of other diseases of the respiratory system; Z83.3 Family history of diabetes mellitus; Z82.49 Family history of ischemic heart disease and other diseases of the circulatory system; I11.0 Hypertensive heart disease with heart failure
CPT/HCPCS: 36415; 71045; 80048; 80053; 81001; 82436; 82550; 83735; 83880; 83930; 83935; 84100; 84300; 84443; 84484; 84550; 85025; 85610; 85730; 87426; 93005; 93306; 93356; G0378; J3475; U0003

== ENCOUNTER 2020-04-27 11:29 | Day surgery (SDC) | payer MEDICARE ==
[2020-04-25 14:01] LABS: BASOPHILS % (AUTO) 0.8 % (0.0-5.0); HEMATOCRIT 36.2 % (36-48); LYMPHOCYTES % (AUTO) 12.5 % (21.0-51.0); MEAN CORPUSCULAR HEMOGLOBIN 32.3 pg (27.0-33.0); MEAN CORPUSCULAR HGB CONC 33.4 g/dL (32.0-36.0); MEAN CORPUSCULAR VOLUME 96.5 fL (79-99); MONOCYTES % (AUTO) 10.3 % (3.0-13.0); NEUTROPHILS % (AUTO) 73.1 % (40.0-77.0); PLATELET COUNT (AUTO) 182 K/uL (130-400); RED BLOOD CELL COUNT(AUTO) 3.75 MIL/uL (4.00-5.50); RED CELL DISTRIBUTION WIDTH 14.2 % (11.0-15.5); WHITE BLOOD COUNT (AUTO) 6.1 K/uL (4.8-10.8)
[2020-04-25 14:07] LABS: CREATININE 0.8 mg/dL (0.5-1.5); POTASSIUM 4.2 mmol/L (3.5-5.1)
[2020-04-25 14:10] LABS: INR 1.23 (0.85-1.15); PROTHROMBIN TIME 13.2 SEC (9.6-11.6)
[2020-04-25 14:12] LABS: PARTIAL THROMBOPLASTIN TIME 30.1 SEC (26.3-35.5)
[2020-04-26 13:52] VITALS: BP 172/82
[2020-04-27] VITALS (19 sets, daily range): BP systolic 124–161; BP diastolic 51–93
[~2020-04-27] VITALS: Ht 162.6 cm; Wt 82.3 kg
[~2020-04-27 11:29] MED LIST changes: +0.9%NACL 1000ML 1,000 ML IV SCH; +AMLO5TAB4 PO; +APIX5TAB PO; +FENTANYL CITRATE PF 50 MCG/1 ML 2ML VIAL ONE; +FLUMAZENIL 0.1MG/1ML 5ML VIAL IV ONE; +LIDOCAINE HCL 2% VISCOUS 15 ML UDCUP ONE; +METO25 PO; +MIDAZOLAM HCL 1 MG/ML 2ML VIAL ONE; +NALOXONE HCL 0.4 MG/1 ML ML ONE; +SODI100037 PO
[2020-04-27] MEDS ORDERED: vitamin d3 PO (12:16)
[2020-04-27] MEDS ORDERED: MULT-1203 PO (12:16)
[2020-04-27] MEDS ORDERED: ESOM40CA PO (12:16)
== END 2020-04-27 16:21 | disposition home or self-care (01) ==
LOC: DAH 11:29
PROVIDERS: ATTEND Internal Medicine Cardiovascular Disease
DX: I48.19 Other persistent atrial fibrillation (principal); I08.3 Combined rheumatic disorders of mitral, aortic and tricuspid valves; I10 Essential (primary) hypertension; I25.2 Old myocardial infarction; E78.5 Hyperlipidemia, unspecified; E66.9 Obesity, unspecified; Z79.890 Hormone replacement therapy; Z79.01 Long term (current) use of anticoagulants; Z79.899 Other long term (current) drug therapy; Z80.3 Family history of malignant neoplasm of breast; Z85.3 Personal history of malignant neoplasm of breast; Z90.11 Acquired absence of right breast and nipple; Z92.21 Personal history of antineoplastic chemotherapy; Z92.3 Personal history of irradiation; Z85.118 Personal history of other malignant neoplasm of bronchus and lung; Z98.890 Other specified postprocedural states; Z87.891 Personal history of nicotine dependence; Z88.8 Allergy status to other drugs, medicaments and biological substances; Z90.89 Acquired absence of other organs; Z90.49 Acquired absence of other specified parts of digestive tract; Z68.30 Body mass index [BMI] 30.0-30.9, adult
CPT/HCPCS: 36415; 80048; 85025; 85610; 85730; 92960; 93005 ×2; 93312; A4213; A4215; A4216; A4221; A4222; A4223 ×3; A4606; A4615; A4663; J2250; J3010; J7030; 93313; 99152; 99153; J2310; J3490

== ENCOUNTER 2020-12-18 11:18 | Inpatient (IN) | payer MEDICARE ==
[~2020-12-18] VITALS: Ht 154.9 cm; Wt 76.9 kg
[~2020-12-18 11:18] MED LIST changes: -0.9%NACL 1000ML 1,000 ML IV SCH; -ASPI-1197 PO; -ATOR40TA69 PO; -CHOL500051 PO; -CLOP75TA14 PO; -CYAN250010 PO; +ESOM40CA PO; -FENTANYL CITRATE PF 50 MCG/1 ML 2ML VIAL ONE; -FLUMAZENIL 0.1MG/1ML 5ML VIAL IV ONE; -LIDOCAINE HCL 2% VISCOUS 15 ML UDCUP ONE; -MAGN400T40 PO; -MIDAZOLAM HCL 1 MG/ML 2ML VIAL ONE; +MULT-1203 PO; -NALOXONE HCL 0.4 MG/1 ML ML ONE; -OMEP40CA21 PO; -SODI100037 PO; -SULF1TAB42 PO; +vitamin d3 PO
[2020-12-18] MEDS ORDERED: FAMO20TA8 PO (11:46)
[2020-12-18] MEDS ORDERED: PANT40TA54 PO (11:46)
[2020-12-18] MEDS ORDERED: 0.9%NACL 1000ML 1,000 ML IV SCH (12:00)
[2020-12-18 12:07] LABS: BASOPHILS % (AUTO) 0.6 % (0.0-5.0); EOSINOPHILS % (AUTO) 2.6 % (0.0-8.0); HEMATOCRIT 37.9 % (36-48); LYMPHOCYTES % (AUTO) 18.4 % (21.0-51.0); MEAN CORPUSCULAR HEMOGLOBIN 33.6 pg (27.0-33.0); MEAN CORPUSCULAR HGB CONC 33.5 g/dL (32.0-36.0); MEAN CORPUSCULAR VOLUME 100.3 fL (79-99); NEUTROPHILS % (AUTO) 65.2 % (40.0-77.0); PLATELET COUNT (AUTO) 193 K/uL (130-400); RED BLOOD CELL COUNT(AUTO) 3.78 MIL/uL (4.00-5.50); WHITE BLOOD COUNT (AUTO) 4.7 K/uL (4.8-10.8)
[2020-12-18 12:23] LABS: INR 1.15 (0.85-1.15); PROTHROMBIN TIME 12.4 SEC (9.6-11.6)
[2020-12-18 12:24] LABS: PARTIAL THROMBOPLASTIN TIME 26.8 SEC (26.3-35.5)
[2020-12-18 12:27] LABS: ALBUMIN 3.9 g/dL (3.5-5.0); BILIRUBIN,TOTAL 1.4 mg/dL (0.2-1.0); CREATININE 0.8 mg/dL (0.5-1.5); MAGNESIUM 1.5 mg/dL (1.80-2.40); TOTAL PROTEIN, SERUM 7.6 g/dL (6.0-8.3)
[2020-12-18] MEDS ORDERED: IOHEXOL 350 MG/ML 100ML INFUS..BTL IV ONE (12:31)
[2020-12-18 13:27] LABS: APPEARANCE,URINE Clear (CLEAR); BILIRUBIN,URINE Negative (NEGATIVE); COLOR,URINE Yellow (YELLOW); GLUCOSE, URINE (UA) Negative (NEGATIVE); KETONES,URINE Trace mg/dL (NEGATIVE); LEUKOCYTE ESTERASE ,URINE Trace (NEGATIVE); NITRATE,URINE Negative (NEGATIVE); OCCULT BLOOD,URINE Negative (NEGATIVE); PH,URINE 7.5 (5.0-8.0); PROTEIN,URINE Negative (NEGATIVE)
[2020-12-18 14:06] LABS: BACTERIA,URINE Rare /HPF (None Seen); RBC,URINE 0-1 /HPF (0-1); SQUAMOUS EPITHELIAL CELL,UR Rare /HPF (0-2); WBC,URINE 0-1 /HPF (0-1)
[2020-12-18] MEDS ORDERED: ASPIRIN 81MG CHEW TAB PO ONE (16:00)
[2020-12-18] MEDS ORDERED: ACETAMINOPHEN 325 MG TAB PO PRN (17:00)
[2020-12-18] MEDS ORDERED: ONDANSETRON 4MG INJ IVP PRN (17:00)
[2020-12-18] MEDS ORDERED: LABETALOL 20MG VIAL IV PRN (17:00)
[2020-12-18] MEDS: ATORVASTATIN 10 MG TABLET PO SCH (20:01)
[2020-12-18] MEDS ORDERED: MAGNESIUM 2GM PREMIX 50ML 50 ML IV ONE ×2 (22:24→22:30)
[2020-12-19 03:00] VITALS: BP 147/71
[2020-12-19 04:13] LABS: HEMATOCRIT 37.1 % (36-48); MEAN CORPUSCULAR HEMOGLOBIN 34.1 pg (27.0-33.0); MEAN CORPUSCULAR HGB CONC 33.2 g/dL (32.0-36.0); MEAN CORPUSCULAR VOLUME 102.8 fL (79-99); RED BLOOD CELL COUNT(AUTO) 3.61 MIL/uL (4.00-5.50); RED CELL DISTRIBUTION WIDTH 12.8 % (11.0-15.5); WHITE BLOOD COUNT (AUTO) 5.1 K/uL (4.8-10.8)
[2020-12-19 04:25] LABS: INR 1.09 (0.85-1.15); PROTHROMBIN TIME 11.8 SEC (9.6-11.6)
[2020-12-19 04:27] LABS: HEMOGLOBIN A1C 5.1 % (4.0-6.0)
[2020-12-19 04:34] LABS: ALBUMIN 3.5 g/dL (3.5-5.0); BILIRUBIN,TOTAL 1.5 mg/dL (0.2-1.0); CREATININE 0.8 mg/dL (0.5-1.5); POTASSIUM 3.9 mmol/L (3.5-5.1); TOTAL PROTEIN, SERUM 7.1 g/dL (6.0-8.3)
[2020-12-19 07:36] VITALS: BP 140/74
[2020-12-19] MEDS: ASPIRIN 81 MG EC TAB PO SCH (08:48)
[2020-12-19] MEDS: FAMOTIDINE 20MG VIAL IV SCH (08:48)
[2020-12-19 10:53] VITALS: BP 146/76
[2020-12-19] MEDS ORDERED: GADOTERATE MEGLUMINE 10 MMOL/20 ML VIAL IV ONE (11:00)
[2020-12-19 15:31] VITALS: BP 140/74
[2020-12-19 20:05] VITALS: BP 153/76
[2020-12-19] MEDS: ATORVASTATIN 10 MG TABLET PO SCH (20:28)
[2020-12-19 23:45] VITALS: BP 140/61
[2020-12-20] MEDS ORDERED: METOPROLOL TARTRATE 1 MG/ML 5ML VIAL IV ONE ×2 (01:58→02:00)
[2020-12-20 04:16] VITALS: BP 128/68
[2020-12-20 07:53] VITALS: BP 140/63
[2020-12-20] MEDS ORDERED: AMLODIPINE 5 MG TAB PO SCH (09:00)
[2020-12-20] MEDS ORDERED: APIXABAN 5 MG TABLET PO SCH (09:00)
[2020-12-20] MEDS ORDERED: METOPROLOL TARTRATE 25 MG TAB PO SCH (09:00)
[2020-12-20] MEDS: FAMOTIDINE 20MG VIAL IV SCH (10:22)
[2020-12-20] MEDS: ASPIRIN 81 MG EC TAB PO SCH (10:22)
[2020-12-20] MEDS ORDERED: DABIGATRAN 150MG CAPSULE PO SCH ×2 (10:30→21:00)
[2020-12-20 10:45] VITALS: BP 144/80
[2020-12-20 15:53] VITALS: BP 129/68
[2020-12-20] MEDS ORDERED: ATOR10 PO (17:35)
[2020-12-20] MEDS ORDERED: AEC81 PO (17:35)
[2020-12-20] MEDS ORDERED: DABI150C PO (17:35)
[2020-12-20] MEDS ORDERED: LISINOPRIL 40 MG TABLET PO SCH (21:00)
== END 2020-12-20 20:55 | disposition home or self-care (01) | DRG 66 ==
LOC: EDH 11:18 → EDHIP 15:40 → 4CH 12-19 03:59
PROVIDERS: ADMIT Family Medicine; ATTEND Family Medicine
DX: I63.40 Cerebral infarction due to embolism of unspecified cerebral artery (principal); I48.91 Unspecified atrial fibrillation; E03.9 Hypothyroidism, unspecified; I48.0 Paroxysmal atrial fibrillation; E78.5 Hyperlipidemia, unspecified; E78.00 Pure hypercholesterolemia, unspecified; G51.0 Bell's palsy; R29.702 NIHSS score 2; I10 Essential (primary) hypertension; E66.9 Obesity, unspecified; Z68.29 Body mass index [BMI] 29.0-29.9, adult; I69.320 Aphasia following cerebral infarction; Z88.5 Allergy status to narcotic agent; Z79.01 Long term (current) use of anticoagulants; Z86.718 Personal history of other venous thrombosis and embolism; Z85.3 Personal history of malignant neoplasm of breast; Z85.118 Personal history of other malignant neoplasm of bronchus and lung; Z92.3 Personal history of irradiation; Z92.21 Personal history of antineoplastic chemotherapy; Z90.11 Acquired absence of right breast and nipple; Z90.2 Acquired absence of lung [part of]; Z90.49 Acquired absence of other specified parts of digestive tract; Z83.6 Family history of other diseases of the respiratory system; Z82.3 Family history of stroke; Z83.3 Family history of diabetes mellitus; Z82.49 Family history of ischemic heart disease and other diseases of the circulatory system
CPT/HCPCS: 36415; 70450; 70496; 70498; 70553; 80053; 80061; 81001; 82550; 82948; 83036; 83735; 83874; 84484; 85025; 85027; 85610; 85730; 92522; 92610; 93005; 93356; 96374; 97039; 99291; C8929; G0378; J3475; J3490; Q9967